=== PATIENT | female | born 1940 | race Hispanic/Latino ===

== ENCOUNTER 2018-09-04 07:07 | Day surgery (SDC) | payer BC ==
[2018-08-28 15:51] VITALS: BMI 27.8
[2018-09-04] MEDS ORDERED: Propofol 10 mg/ml Inj (20 ML) ONE (08:56)
[2018-09-04] MEDS ORDERED: Sodium Chloride 0.9% 1,000 ML IV SCH (09:00)
[2018-09-04 11:33] VITALS: BP 107/57; PULSE 69; RESP 16; TEMP 97.9; O2SAT 95
== END 2018-09-04 11:35 | disposition home or self-care (01) ==
LOC: ENDO 07:07
PROVIDERS: ATTEND Specialist
DX: Z12.11 Encounter for screening for malignant neoplasm of colon (principal); D12.3 Benign neoplasm of transverse colon; D17.5 Benign lipomatous neoplasm of intra-abdominal organs; K57.30 Diverticulosis of large intestine without perforation or abscess without bleeding; K64.8 Other hemorrhoids
CPT/HCPCS: 45385; 88305; J2704; J7030; J7040